=== PATIENT | male | born 1945 | race Caucasian/White ===

== ENCOUNTER 2022-12-26 13:39 | Outpatient (CLI) | payer BC | END 2022-12-26 23:59 | disposition home or self-care (01) | LOC: RAD 13:39 | PROVIDERS: ATTEND Nurse Practitioner Primary Care | DX: Z01.818 Encounter for other preprocedural examination (principal); R00.1 Bradycardia, unspecified; Z98.890 Other specified postprocedural states | CPT/HCPCS: 93005 ==